=== PATIENT | female | born 1980 | race Caucasian/White ===

== ENCOUNTER 2023-03-26 06:34 | Day surgery (SDC) | payer BC, OTHER ==
[~2023-03-26 06:34] MED LIST: Lactated Ringers 1,000 ML IV SCH
[2023-03-26] MEDS ORDERED: Naloxone 0.4 MG/ML SDV IVPUSH PRN (07:01)
[2023-03-26] MEDS ORDERED: droPERidol 5 MG/2 ML SDV IVPUSH PRN (07:01)
[2023-03-26] MEDS ORDERED: Morphine 2 MG/ML SYRINGE IVPUSH PRN (07:01)
[2023-03-26] MEDS ORDERED: fentaNYL 50 MCG/ML SDV IVPUSH PRN (07:01)
[2023-03-26] MEDS ORDERED: Albuterol 0.083% 2.5 MG/3 ML Neb Soln NEB PRN (07:01)
[2023-03-26] MEDS ORDERED: Metoclopramide 10 MG/2 ML SDV IVPUSH PRN (07:01)
[2023-03-26] MEDS ORDERED: Ondansetron 4 MG/2 ML SDV IVPUSH PRN (07:01)
[2023-03-26] MEDS ORDERED: HYDROmorphone 1 MG/ML Syringe IVPUSH PRN (07:01)
[2023-03-26] MEDS ORDERED: Midazolam 1 MG/ML 2 ML SDV ONE (07:12)
[2023-03-26] MEDS ORDERED: fentaNYL 100 MCG/2 ML SDV ONE (07:12)
[2023-03-26] MEDS ORDERED: propofoL 50 ML ONE (07:12)
[2023-03-26] MEDS ORDERED: Bupivacaine 0.5% 30 ML SDV ONE (07:24)
[2023-03-26] MEDS ORDERED: Lidocaine 1% 20 ML MDV ONE (07:24)
[2023-03-26] MEDS ORDERED: Acetaminophen/HYDROcodone 325-5 MG Tab PO PRN (09:03)
[2023-03-26] MEDS ORDERED: Lactated Ringers 1,000 ML IV SCH (09:15)
[2023-03-26 09:31] VITALS: BP 112/65; PULSE 60
== END 2023-03-26 09:25 | disposition home or self-care (01) ==
LOC: MW.SDS 06:34
PROVIDERS: ATTEND Surgery
DX: L72.0 Epidermal cyst (principal); L92.3 Foreign body granuloma of the skin and subcutaneous tissue; E66.9 Obesity, unspecified; Z98.51 Tubal ligation status; Z79.899 Other long term (current) drug therapy; Z87.891 Personal history of nicotine dependence; Z68.32 Body mass index [BMI] 32.0-32.9, adult
CPT/HCPCS: 11402; 81025; J0131; J2250; J2704; J3010; J3490; J7120; 00300